=== PATIENT | male | born 1960 | race Caucasian/White ===

== ENCOUNTER → 2022-06-29 | Day surgery (SDC) | payer OTHER ==
[~2022-06-29] MED LIST: LACTATED RINGERS 1,000 ML IV ONE; LACTATED RINGERS 1,000 ML IV SCH; LIDOCAINE 1% (10MG/ML) FOR IV START INTRADERMA PRN; PROPOFOL 10 MG/ML 20 ML VIAL IV ONE
[2022-06-29 07:20] VITALS: TEMP 97.8
[2022-06-29 07:34] LABS: Glucose,Whole Blood 115 mg/dL (70-110)
--- NOTE | 2022-06-29 07:53 | P.GSHP ---
History of Present Illness H&P Date: 06/29/22 Chief Complaint: Screening colonoscopy This a 59-year-old male presents today for screening colonoscopy. Patient denies a significant GI complaints. Past Medical History Past Medical History: Hyperlipidemia, Hypertension Additional Past Medical History / Comment(s): OCCASIONAL HYPOGLYCEMIA WITH BLURRED VISION.,hx RT INGUINAL HERNIA. History of Any Multi-Drug Resistant Organisms: None Reported Past Surgical History: Hernia Repair Additional Past Surgical History / Comment(s): HERNIA REPAIR AN INFANT, rt inguinal hernia repair as adult, VASECTOMY, COLONOSCOPY. Past Anesthesia/Blood Transfusion Reactions: No Reported Reaction, Motion Sickness Smoking Status: Never smoker - Past Family History Father Family Medical History: Cancer Additional Family Medical History / Comment(s): COLON CA WITH METS- Mother Family Medical History: Cancer Additional Family Medical History / Comment(s): NON HODGKINS LYMPHOMA-. Medications and Allergies Home Medications Medication Instructions Recorded Confirmed Type Simvastatin [Zocor] 10 mg PO HS 05/18/15 06/27/22 History lisinopriL [Zestril] 30 mg PO DAILY 05/18/15 06/27/22 History Metoprolol Tartrate 1 tab PO DAILY 06/27/22 06/27/22 History Unk Multi Vitamin 1 tab PO DAILY 06/27/22 06/27/22 History Allergies Allergy/AdvReac Type Severity Reaction Status Date / Time lovastatin [From Advicor] Allergy Rapid Verified 06/27/22 12:25 Heart Rate niacin [From Advicor] Allergy Rapid Verified 06/27/22 12:25 Heart Rate Surgical - Exam Vital Signs Temp Pulse Resp BP Pulse Ox 97.8 F 78 18 156/94 98 06/29/22 07:19 06/29/22 07:19 06/29/22 07:19 06/29/22 07:19 06/29/22 07:19 - General well developed, well nourished, no distress - Eyes PERRL - ENT normal pinna - Neck no masses - Respiratory normal expansion - Cardiovascular Rhythm: regular - Abdomen Abdomen: soft Hernia: none Results - Labs Abnormal Lab Results - Last 24 Hours (Table) 06/29/22 Range/Units 07:33 POC Glucose (mg/dL) 115 H (70-110) mg/dL Assessment and Plan Assessment: We'll perform screening colonoscopy
--- NOTE | 2022-06-29 08:10 | P.OP ---
Date of Procedure: 06/29/22 Preoperative Diagnosis: Screening colonoscopy Postoperative Diagnosis: Diverticulosis Internal hemorrhoids Procedure(s) Performed: Colonoscopy Anesthesia: MAC Surgeon: Solitario Lopez Pathology: none sent Condition: stable Disposition: PACU Description of Procedure: Patient's placed on the endoscopy table in the lateral position. He received IV sedation. Digital rectal exam was performed. There were internal hemorrhoids noted. The prostate was symmetrical without nodules. The flexible colonoscope was then placed patient anus and passed entire colon. The ileocecal valve was visualized. The cecum, ascending and transverse colon appeared normal. In the descending; there was significant diverticular changes. The sigmoid colon was quite tortuous. The scope was then brought back the rectum this appeared normal. Scope withdrawn for patient.
[2022-06-29 08:32] VITALS: BP 109/77; PULSE 73; RESP 18
== END ==
LOC: ORWHC2ENDO 07:01
PROVIDERS: ATTEND Surgery
DX: Z12.11 Encounter for screening for malignant neoplasm of colon (principal); K57.30 Diverticulosis of large intestine without perforation or abscess without bleeding; E78.5 Hyperlipidemia, unspecified; I10 Essential (primary) hypertension; Z98.890 Other specified postprocedural states; Z80.0 Family history of malignant neoplasm of digestive organs; Z79.899 Other long term (current) drug therapy
CPT/HCPCS: 45378; J2704

== ENCOUNTER → 2023-04-09 | Outpatient (CLI) | payer OTHER ==
--- NOTE | 2023-04-09 09:48 | MR ---
EXAMINATION TYPE: MR Prostate wo/w con DATE OF EXAM: 04/09/2023 9:07 AM COMPARISON: None. CLINICAL INDICATION:Male, 62 years old with history of N40.0, R97.20; PHH, TECHNIQUE: Multi-planar, multi-sequence imaging of the pelvis is performed prior to and following the uncomplicated administration of bolus intravenous gadolinium. CONTRAST: 7 Gadavist Interpretive Criteria: PI-RADS v2.1 SERUM PSA: 5.3 on 03/05/2023. 3.6 on 02/10/2021. SURGICAL PATHOLOGY: No data available. FINDINGS: Prostatic dimensions: 5.0 x 5.0 x 3.5 cm. "Bullet" Volume: 57.27 (PSA density=0.09 ng/mL/mL) CENTRAL GLAND (Central and Transition Zones/CZ+TZ): Multiple bilateral, heterogenous appearing hypertrophic stromal nodules, without suspicious lesion. A sameer within the left central gland of mildly increased at d-dimer signal series 803 image 88 somewhat patchy and felt to represent a BPH nodule. Median lobe hypertrophy with protrusion into the base of t he bladder. (PI-RADS 2) PERIPHERAL ZONE (PZ): Limited evaluation of the posterior peripheral zone secondary to gas in the rectum. No evidence of ma sslike abnormality, or localized perfusional hypervascularity, to further suggest a focus of clinical ly significant prostate cancer. (PI-RADS 2) SEMINAL VESICLES (SV): Distended left decompressed right. PERIPROSTATIC TISSUES: Unremarkable. LYMPH NODES: No enlarged pelvic lymph node. REMAINING PELVIS: Bladder wall is within normal limits given distention. No abnormal free or organized intrapelvic fluid collection. No pathologic bowel dilation or mural thickening. Scattered colonic diverticula are present. Fat-containing inguinal hernia on the left. OSSEOUS STRUCTURES: No suspicious osseous abnormality. IMPRESSION: 1. No specific features for high-risk prostate cancer. Maximum PI-RADS score: 2. 2. Moderate BPH, estimated gland volume 57.27 mL.
== END | disposition home or self-care (01) ==
LOC: RADMRIMAIN 07:57
PROVIDERS: ATTEND Family Medicine
DX: N40.0 Benign prostatic hyperplasia without lower urinary tract symptoms (principal); R97.20 Elevated prostate specific antigen [PSA]
CPT/HCPCS: 72197; A9585